=== PATIENT | female | born 1980 | race Caucasian/White ===

== ENCOUNTER 2016-03-03 15:32 | Outpatient (CLI) ==
--- NOTE | 2016-03-03 17:00 | DI ---
Exam: Left foot three views History: Left foot pain Findings: AP, internal rotation and lateral views of the left foot were obtained and shows no evide nce of fracture, dislocation, periosteal reaction or erosive changes. No evidence of significant osiel ne or joint space abnormality is identified. Impression: Normal appearing three-view study of the left foot.
== END 2016-03-03 15:33 | disposition home or self-care (01) ==
LOC: RAD 15:32
PROVIDERS: ATTEND Nurse Practitioner Family
DX: M79.672 Pain in left foot (principal)

== ENCOUNTER 2017-01-18 16:36 | Outpatient (CLI) ==
[2017-01-18 16:54] LABS: FLU INTERNAL QC INTERNAL QC VALID; RAPID FLU A NEGATIVE (NEGATIVE); RAPID FLU B NEGATIVE (NEGATIVE)
== END 2017-01-18 16:37 | disposition home or self-care (01) ==
LOC: LAB 16:36
PROVIDERS: ATTEND Nurse Practitioner Family
DX: R50.9 Fever, unspecified (principal)
CPT/HCPCS: 87651; 87804; 87880

== ENCOUNTER 2017-10-13 22:23 | Emergency (ER) | payer MEDICAID, OTHER ==
[2017-10-13 22:32] VITALS: BP 109/74; TEMP 98.7; BMI 25.1
[2017-10-13] MEDS ORDERED: SOLU-MEDROL 125 MG IM STA (23:15)
[2017-10-13] MEDS ORDERED: AUGMENTIN 875-125 MG TAB PO STA (23:15)
--- NOTE | 2017-10-13 23:19 | ED.PDOC ---
General ED Provider: Dr. ASHKAN COLON Chief Complaint: Earache Stated Complaint: patient is a 36 year old female who comes to the Er with complaints of right ear, right jaw and sinus pain for few days. Thinks its her sinues. Time Seen by Physician: 23:00 Mode of Arrival: Walk-In Information Source: Patient Exam Limitations: No limitations Primary Care Provider: GIANNI QUIGLEY Nursing and Triage Documentation Reviewed and Agree: Yes Does patient meet sepsis criteria?: No If yes, has appropriate treatment been initiated?: No System Inflammatory Response Syndrome: Not Applicable Sepsis Protocol: For patient's 13 years and over: Temp is 96.8 and below OR 101 and greater Pulse >90 BPM Resp >20/minute Acutely Altered Mental Status Are patient's symptoms suggestive of a new infection, such as: -Pneumonia -Skin, Soft Tissue -Endocarditis -UTI -Bone, Joint Infection -Implantable Device -Acute Abdominal Infection -Wound Infection -Meningitis -Blood Stream Catheter Infection -Unknown Review of Systems - Review Of Systems Constitutional: Reports: Malaise Eyes: Reports: No symptoms Ears, Nose, Mouth, Throat: Reports: Ear pain, Mouth pain (Right jaw pain. ) Respiratory: Reports: No symptoms Cardiac: Reports: No symptoms GI: Reports: No symptoms : Reports: No symptoms Musculoskeletal: Reports: No symptoms Skin: Reports: No symptoms Neurological: Reports: Anxiety, Headache Endocrine: Reports: No symptoms Hematologic/Lymphatic: Reports: No symptoms All Other Systems: Reviewed and Negative Past Medical History - Past Medical History Previously Healthy: Yes Endocrine: Reports: None Cardiovascular: Reports: None Respiratory: Reports: None Hematological: Reports: None Gastrointestinal: Reports: None Genitourinary: Reports: None Neuro/Psych: Reports: Anxiety Musculoskeletal: Reports: Arthritis Cancer: Reports: None Last Menstrual Period: 2 WEEKS AGO - Surgical History General Surgical History: Reports: Cholecystectomy, Hernia Repair (umbilical ) - Family History Family History: Reports: Unknown - Social History Smoking Status: Current every day smoker, Heavy tobacco smoker Hx Substance Use: No Alcohol Screening: Occasionally - Immunizations Tetanus Shot up to Date: Yes Physical Exam - Physical Exam Appearance: Ill-appearing Ill-appearing: Mild Pain Distress: Severe Eyes: JU, EOMI, Conjunctiva clear ENT: Ears normal, Nose normal, Oropharynx normal Neck: Supple Respiratory: Airway patent, Breath sounds clear, Breath sounds equal, Respirations nonlabored Cardiovascular: RRR, Pulses normal, No rub, No murmur Musculoskeletal: Normal strength, ROM intact, No edema, No calf tenderness Skin: Warm, Dry, Normal color Neurological: Alert, Oriented Psychiatric: Anxious Critical Care Note - Critical Care Note Total Time (mins): 0 Comments: has taken prenisone in the past Course - Course Orders, Labs, Meds: Orders Category Date Time Status Amoxicillin/Potassium Clav [Augmentin 875-125 mg Tab] MEDS 10/13/17 23:15 Stat 1 tab PO ONCE STA Methylprednisolone Sod Succ/Pf [Solu-Medrol 125 mg] MEDS 10/13/17 23:15 Stat 125 mg IM ONCE STA Medications Discontinued Medications Generic Name Dose Route Start Last Admin Trade Name Freq PRN Reason Stop Dose Admin Amoxicillin/Clavulanate Potassium 1 tab 10/13/17 23:15 Augmentin 875-125 Mg Tab PO 10/13/17 23:16 ONCE STA Methylprednisolone Sodium Succinate 125 mg 10/13/17 23:15 Solu-Medrol 125 Mg IM 10/13/17 23:16 ONCE STA Vital Signs: Temp Pulse Resp BP Pulse Ox 10/13/17 22:24 98.7 F 87 18 109/74 98 Departure - Departure Time of Disposition: 23:16 Disposition: HOME SELF-CARE Discharge Problem: Otalgia of right ear Sinusitis, acute Qualifiers: Sinusitis location: maxillary Recurrence: recurrent Qualified Code(s): J01.01 - Acute recurrent maxillary sinusitis Instructions: Sinusitis (ED), Earache (ED) Condition: Good Pt referred to PMD for follow-up: Yes IPMP verified?: No Additional Instructions: Take Medications as prescribed Follow up with the clinic if not better. Quit smoking Prescriptions: Amoxicillin/Potassium Clav [Augmentin 875-125 mg Tab] 1 tab PO Q12HR #30 tablet Prednisone 20 mg PO DAILYWM #5 tablet Allergies/Adverse Reactions: Allergies codeine Allergy (Severe, Verified 10/13/17 22:33) Hives fluticasone propionate [From Flonase] Allergy (Severe, Verified 10/13/17 22:33) rash Patient notified drugstore. azithromycin [From Zithromax Z-Eulogio] Adverse Reaction (Verified 10/13/17 22:37) Hives E mycin Allergy (Severe, Uncoded 10/13/17 22:33) Hives Home Medications: Ambulatory Orders Amoxicillin/Potassium Clav [Augmentin 875-125 mg Tab] 1 tab PO Q12HR #30 tablet 10/13/17 Prednisone 20 mg PO DAILYWM #5 tablet 10/13/17 Disposition Discussed With: Patient
== END 2017-10-13 23:53 | disposition home or self-care (01) ==
LOC: ED 22:23
DX: J01.01 Acute recurrent maxillary sinusitis (principal); H92.01 Otalgia, right ear; F17.210 Nicotine dependence, cigarettes, uncomplicated
CPT/HCPCS: 96372; 99282